=== PATIENT | male | born 1950 | race Caucasian/White ===

== ENCOUNTER 2019-09-21 14:27 | Emergency (ER) | payer SELFPAY ==
--- NOTE | 2019-09-21 14:51 | ED Cough/URI ---
General Chief Complaint: Respiratory Problems Stated Complaint: COUGH; FEVER Source: patient History of Present Illness Date Seen by Provider: Sep 21, 2019 Time Seen by Provider: 14:51 Initial Comments 69-year-old male comes in with cough, fever, shortness of breath, chest pain. [facility]. He reports he's been on ant ibiotic with 2 rounds. Patient reports he has 1 more round of antibiotic is still having a cough. Patient reports [facility] who [facility]. [facility] he is high exposure risk to COVID-19. Patient denies any nausea, vomiting, diarrhea or other systemic complaints. Allergies and Home Medications Allergies Coded Allergies: No Known Drug Allergies (Unverified , 09/21/19) Patient Home Medication List Home Medication List Reviewed: Yes Review of Systems Review of Systems Constitutional: chills, fever, malaise EENTM: No nose pain, No throat pain Respiratory: cough, short of breath Cardiovascular: chest pain Genitourinary: no symptoms reported Musculoskeletal: no symptoms reported Skin: no symptoms reported Psychiatric/Neurological: No Symptoms Reported Hematologic/Lymphatic: No Symptoms Reported Immunological/Allergic: no symptoms reported Past [id number]-[id number] Hx Past Med/Social Hx: Reviewed Nursing Past Med/Soc Hx Patient Social History Recent Foreign Travel: No Contact w/Someone Who Travel: Yes ([place]) Physical Exam Vital Signs - First Documented 09/21/19 14:48 Temp 36.8 Pulse 101 Resp 20 B/P (MAP) 146/94 (111) Pulse Ox 98 Capillary Refill : Height: '" Weight: lbs. oz. 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, alert, oriented x 3 Skin: normal color, warm/dry Lymphatic: no adenopathy Progress/Results/Core Measures Suspected Sepsis SIRS Temperature: Pulse: Respiratory Rate: Laboratory Tests 09/21/19 15:05: White Blood Count 7.4 Blood Pressure / Mean: Laboratory Tests 09/21/19 15:05: Creatinine 0.88, Platelet Count 154, Total Bilirubin 0.4 Results/Orders Lab Results Laboratory Tests Test 09/21/19 15:05 09/21/19 15:07 Range/Units White Blood Count 7.4 4.3-11.0 10^3/uL Red Blood Count 5.44 4.35-5.85 10^6/uL Hemoglobin 15.5 13.3-17.7 G/DL Hematocrit 47 40-54 % Mean Corpuscular Volume 87 80-99 FL Mean Corpuscular Hemoglobin 28 25-34 PG Mean Corpuscular Hemoglobin Concent 33 32-36 G/DL Red Cell Distribution Width 13.9 10.0-14.5 % Platelet Count 154 130-400 10^3/uL Mean Platelet Volume 10.4 7.4-10.4 FL Neutrophils (%) (Auto) 61 42-75 % Lymphocytes (%) (Auto) 25 12-44 % Monocytes (%) (Auto) 9 0-12 % Eosinophils (%) (Auto) 4 0-10 % Basophils (%) (Auto) 1 0-10 % Neutrophils # (Auto) 4.5 1.8-7.8 X 10^3 Lymphocytes # (Auto) 1.9 1.0-4.0 X 10^3 Monocytes # (Auto) 0.7 0.0-1.0 X 10^3 Eosinophils # (Auto) 0.3 0.0-0.3 10^3/uL Basophils # (Auto) 0.0 0.0-0.1 10^3/uL Erythrocyte Sedimentation Rate 6 0-30 MM/HR D-Dimer 1.21 H 0.00-0.49 UG/ML Sodium Level 139 135-145 MMOL/L Potassium Level 4.5 3.6-5.0 MMOL/L Chloride Level 100 98-107 MMOL/L Carbon Dioxide Level 23 21-32 MMOL/L Anion Gap 16 H 5-14 MMOL/L Blood Urea Nitrogen 11 7-18 MG/DL Creatinine 0.88 0.60-1.30 MG/DL Estimat Glomerular Filtration Rate > 60 BUN/Creatinine Ratio 13 Glucose Level 98 70-105 MG/DL Calcium Level 9.6 8.5-10.1 MG/DL Corrected Calcium 9.4 8.5-10.1 MG/DL Total Bilirubin 0.4 0.1-1.0 MG/DL Direct Bilirubin < 0.2 0.0-0.3 MG/DL Indirect Bilirubin 0.2 MG/DL Aspartate Amino Transf (AST/SGOT) 23 5-34 U/L Alanine Aminotransferase (ALT/SGPT) 19 0-55 U/L Alkaline Phosphatase 44 40-136 U/L Total Protein 7.5 6.4-8.2 GM/DL Albumin 4.2 3.2-4.5 GM/DL Group A Streptococcus Screen NEGATIVE NEGATIVE Micro Results Microbiology 09/21/19 Influenza Types A,B Antigen (MALIK) - Final, Complete My Orders Orders - JULIANNAROSA MARIA L DO Chest 1 View Ap/Pa Only (09/21/19 14:57) Cbc With Automated Diff (09/21/19 14:57) Comprehensive Metabolic Panel (09/21/19 14:57) Ferritin (09/21/19 14:57) Fibrin Degradation Products (09/21/19 14:57) Erythrocyte Sedimentation Rate (09/21/19 14:57) Liver Panel (09/21/19 14:57) Rapid Strep A Screen (09/21/19 15:22) Influenza A And B Antigens (09/21/19 15:22) Hs C Reactive Protein (09/21/19 15:05) LDH (09/21/19 15:05) Procalcitonin (Pct) (09/21/19 15:05) Benzonatate Capsule (Tessalon Perles) (09/21/19 21:00) Vital Signs/I&O 09/21/19 14:48 Temp 36.8 Pulse 101 Resp 20 B/P (MAP) 146/94 (111) Pulse Ox 98 Capillary Refill : Progress Note : Time: 16:11 Progress Note Patient x-ray consistent with a pneumonitis which is 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 Patient reports that he is currently on an inhaler. I will give him a low-dose steroid 5 days. I will also give him some Tessalon Perles. Due to his potential exposure at the [facility] and no [place] area in his length of symptoms. We will test him for the COVID-19 coronavirus. Patient is stable will be discharged home. Should follow-up with the CT next week. Diagnostic Imaging Diagonstic Imaging: Xray Plain Films/CT/US/NM/MRI: chest Comments NAME: AXEL CISNEROS [facility] REC#: [id number] PT STATUS: REG ER : 1950 PHYSICIAN: ROSA MARIA LEVINE DO ADMIT DATE: 09/21/19/ER FS Draft Date of Exam:09/21/19 CHEST 1 VIEW AP/PA ONLY EXAM: Chest 1 view AP/PA only. INDICATION: Cough. Fever. Shortness of breath. COMPARISON: None. FINDINGS: Airspace consolidation ine medial right lung base. No pleural effusion or pneumothorax. Normal heart size and central pulmonary vascularity. Calcified aorta. IMPRESSION: Airspace consolidation in the medial right lung base suspicious for pneumonitis. Recommend follow-up to resolution. Departure Impression Primary Impression: Pneumonitis Additional Impression: Viral URI with cough Disposition: HOME, SELF-CARE Condition: Stable Departure-Patient Inst. Patient Instructions: COVID19, Pneumonitis, Viral Upper Respiratory Infection, Adult (DC) Add. Discharge Instructions: Emergency department focuses on treating and ruling out life-threatening diseases. Whenever possible, a diagnosis is given. However, most patients are given an impression based on their history, physical exam, and workup during your brief time in the ER. Information about probable diagnosis and other educational material has been provided. Please take the time to read and understand this information. It is very important that you follow up with a physician as discussed during the visit today. Failure to adhere to your follow-up instructions may lead to severe disability, injury, or so please make sure to keep your appointments or obtain one as requested. Please keep in mind the emergency department is not designed to your primary care or "family doctor" and nonurgent issues are best evaluated by an outpatient physician All discharge instructions reviewed with patient and/or family. Voiced understanding. Scripts Prednisone (Prednisone) 20 Mg Tab 20 MG PO DAILY, #5 TAB 0 Refills Prov: ROSA MARIA LEVINE DO 09/21/19 Benzonatate (TESSALON PERLES) 100 Mg Capsule 100 MG PO Q8H PRN for COUGH, #15 CAP Prov: ROSA MARIA LEVINE DO 09/21/19 ROSA MARIA LEVINE DO Sep 21, 2019 14:51
[2019-09-21 15:22] LABS: HEMATOCRIT 47 % (40-54); HEMOGLOBIN 15.5 G/DL (13.3-17.7); MEAN CORPUSCULAR HEMOGLOBIN 28 PG (25-34); WHITE BLOOD COUNT 7.4 10^3/uL (4.3-11.0)
[2019-09-21 15:23] LABS: BASOPHILS % (AUTO) 1 % (0-10); EOSINOPHILS # (AUTO) 0.3 10^3/uL (0.0-0.3); EOSINOPHILS % (AUTO) 4 % (0-10); LYMPHOCYTES # (AUTO) 1.9 X 10^3 (1.0-4.0); LYMPHOCYTES % (AUTO) 25 % (12-44); MEAN CORPUSCULAR HGB CONC 33 G/DL (32-36); MEAN CORPUSCULAR VOLUME 87 FL (80-99); MEAN PLATELET VOLUME 10.4 FL (7.4-10.4); MONOCYTES # (AUTO) 0.7 X 10^3 (0.0-1.0); MONOCYTES % (AUTO) 9 % (0-12); NEUTROPHILS # (AUTO) 4.5 X 10^3 (1.8-7.8); NEUTROPHILS % (AUTO) 61 % (42-75); PLATELET COUNT 154 10^3/uL (130-400); RED CELL DISTRIBUTION WIDTH 13.9 % (10.0-14.5)
--- NOTE | 2019-09-21 15:40 | Diagnostic Imaging Report ---
EXAM: Chest 1 view AP/PA only. INDICATION: Cough. Fever. Shortness of breath. COMPARISON: None. FINDINGS: Airspace consolidation ine medial right lung base. No pleural effusion or pneumothorax. Normal heart size and central pulmonary vascularity. Calcified aorta. IMPRESSION: Airspace consolidation in the medial right lung base suspicious for pneumonitis. Recommend follow-up to resolution. Dictated by: Dictated on workstation # [id number]
[2019-09-21 15:42] LABS: ALANINE AMINOTRANSFERASE 19 U/L (0-55); ALBUMIN 4.2 GM/DL (3.2-4.5); ALKALINE PHOSPHATASE 44 U/L (40-136); BILIRUBIN,DIRECT < 0.2 MG/DL (0.0-0.3); BILIRUBIN,INDIRECT 0.2 MG/DL; BILIRUBIN,TOTAL 0.4 MG/DL (0.1-1.0); BUN/CREATININE RATIO 13; CALCIUM 9.6 MG/DL (8.5-10.1); CARBON DIOXIDE 23 MMOL/L (21-32); CHLORIDE 100 MMOL/L (98-107); CREATININE SERUM 0.88 MG/DL (0.60-1.30); GFR ESTIMATED > 60; GLUCOSE 98 MG/DL (70-105); POTASSIUM 4.5 MMOL/L (3.6-5.0); SODIUM 139 MMOL/L (135-145); TOTAL PROTEIN 7.5 GM/DL (6.4-8.2)
[2019-09-21 15:52] LABS: ERYTHROCYTE SEDIMENTATION RATE 6 MM/HR (0-30)
[2019-09-21] MEDS ORDERED: BENZONATATE 100 MG (TESSALON) CAPSULE PO ONE (16:14)
[2019-09-21] MEDS ORDERED: BENZ100C18 PO (16:15)
[2019-09-21] MEDS ORDERED: PRD20T PO (16:15)
[2019-09-21 16:25] VITALS: BP 129/72
[2019-09-21] MEDS ORDERED: BENZONATATE 100 MG (TESSALON) CAPSULE PO SCH (21:00)
== END 2019-09-21 16:30 | disposition home or self-care (01) ==
LOC: ER FS 14:44
DX: J18.9 Pneumonia, unspecified organism (principal); J06.9 Acute upper respiratory infection, unspecified
CPT/HCPCS: 36415; 71045; 80053; 80076; 82728; 83615; 84145; 85025; 85379; 85652; 86141; 87430; 87635; 87804

== ENCOUNTER 2022-02-25 18:44 | Outpatient (CLI) | payer OTHER ==
[~2022-02-25 18:44] MED LIST: BENZ100C18 PO; PRD20T PO
== END 2022-02-26 05:05 | disposition home or self-care (01) ==
LOC: SLEEP 18:44
PROVIDERS: ATTEND Nurse Practitioner
DX: I26.99 Other pulmonary embolism without acute cor pulmonale (principal); J84.10 Pulmonary fibrosis, unspecified; I10 Essential (primary) hypertension
CPT/HCPCS: 95810